=== PATIENT | male | born 1955 | race Hispanic/Latino ===

== ENCOUNTER → 2019-12-12 | Day surgery (SDC) | payer MEDICARE, OTHER ==
[2019-12-10 11:28] LABS: ANION GAP 16.8 mmol/L (8-16); BLOOD UREA NITROGEN 11 mg/dL (7-26); BUN/CREATININE RATIO 10 (6-25); CALCIUM 8.6 mg/dL (8.4-10.2); CARBON DIOXIDE 21 mmol/L (22-29); CHLORIDE 108 mmol/L (98-107); CREATININE, SERUM 1.08 mg/dL (0.72-1.25); EST GLOMERULAR FILTRATION RATE > 60 ML/MIN (60-); GLUCOSE 133 mg/dL (74-118); POTASSIUM 3.8 mmol/L (3.5-5.1); SODIUM 142 mmol/L (136-145)
[~2019-12-12] MED LIST: ATENOLOL; CEFTRIAXONE SOD 1 GM/NS 50 ML 50 ML IV ONE; DEXAMETHASONE SOD PHOS INJ 4 MG/ML VIAL ONE; DIABETES MED PO; DICYCLOMINE; DIPHEN/ATROPINE; FAMOTIDINE20 MG PO; FENTANYL CITRATE/PF 100MCG/2 ML INJ ONE; FLOMAX0.4 MG PO; IOPAMIDOL 300MG/ML 50ML INFUS..BTL IV ONE; LEVOTHYROXINE50 MCG PO; LIDOCAINE HCL 2% LOCAL INJ 5 ML SDV VIAL INJ ONE; LISINOPRIL-HCT1 EAC4 PO; MIDAZOLAM HCL 2 MG/2 ML VIAL ONE; NIFEDIPINE10 MG PO; ONDANSETRON HCL INJ 2MG/ML 2ML 2 MG/ML VIAL ONE; PROPOFOL IV EMULSION 10 MG/ML 20 ML VIAL ONE; SEVOFLURANE INHAL SOLN 250 ML PEN BTL ONE; Z.0.ATENOLOL50 MG PO; Z.0.MECLIZINE HCL12. PO; Z.0.METOPROLOL SUCC5 PO
[2019-12-12 11:00] VITALS: BP 160/89
--- NOTE | 2019-12-16 15:55 | Operative Report ---
DATE OF PROCEDURE: 12/12/2019 SURGEON: Isac Colbert MD PREOPERATIVE DIAGNOSES: 1. Microscopic hematuria. 2. Right ureteral calculus. 3. Right hydronephrosis. POSTOPERATIVE DIAGNOSES: 1. Microscopic hematuria. 2. Right ureteral calculus. 3. Right hydronephrosis. PROCEDURES: 1. Cystourethroscopy with right ureteral catheterization and right retrograde pyelogram (entirely separate procedure for microscopic hematuria). 2. Cystourethroscopy with insertion of a right indwelling stent (entirely separate procedure for right hydronephrosis). 3. Staged right-sided shock wave lithotripsy (entirely separate procedure for right ureteral calculus). 4. Supervision of fluoroscopy. 5. Interpretation of retrograde pyelography. ANESTHESIA: General. ESTIMATED BLOOD LOSS: Minimal. COMPLICATIONS: None. INDICATIONS: Mr. Villa is a very pleasant 64-year-old male with a history of 10 x 15 mm right UPJ stone with hydronephrosis. The patient and I had a long discussion of alternatives, risks, and benefits of doing nothing, shockwave lithotripsy, ureteroscopy, percutaneous surgery, or open surgery including stent placement. He voiced understanding of the options, alternatives, risks, and benefits and elected to proceed. PROCEDURE IN DETAIL: After informed consent was obtained, the patient was taken to the operative suite, place supine on the operative table, underwent general anesthesia by the Anesthesia Service, placed in dorsal lithotomy position, and sterilely prepped and draped for cystoscopy. A 21-Danish cystoscope was inserted per urethra. There was trilobar prostatic hypertrophy. Panendoscopy of the bladder revealed no tumors, no stones. Both ureteral orifices were in normal anatomic location and position and were seen to efflux urine. Right-sided retrograde pyelogram was performed revealing a densely obstructed right 10 x 15 mm proximal ureteral calculus. The lithotripsy was brought into view. A total of 3000 shocks in maximum power of 7 delivered to the stone. We could get a guidewire proximal to the stone, 6 x 28 cm ureteral stent was deployed with a coil in the upper pole and a coil in the bladder. The patient's bladder was drained. He was awakened from anesthesia and transported to the recovery room in excellent condition. Supervision of fluoroscopy and interpretation of retrograde pyelography: I was present for the entire procedure and supervised fluoroscopy. There was no radiologist present. Attention was turned towards the right ureter, which was catheterized with a 5-Danish open-ended catheter. Retrograde pyelogram was performed revealing delicate distal ureter, a 10 x 15 mm proximal ureteral calculus, proximal hydronephrosis. Postoperative views reveal a right ureteral stent in adequate position. MD NATHALIA Oliver/MODL /[id number]
== END | disposition home or self-care (01) ==
LOC: OR 07:22
PROVIDERS: ATTEND Urology
DX: N13.2 Hydronephrosis with renal and ureteral calculous obstruction (principal); N40.1 Benign prostatic hyperplasia with lower urinary tract symptoms; N13.8 Other obstructive and reflux uropathy; N39.0 Urinary tract infection, site not specified; N52.9 Male erectile dysfunction, unspecified; I10 Essential (primary) hypertension; E78.5 Hyperlipidemia, unspecified; E11.9 Type 2 diabetes mellitus without complications; E03.9 Hypothyroidism, unspecified; K21.9 Gastro-esophageal reflux disease without esophagitis; Z01.810 Encounter for preprocedural cardiovascular examination; Z01.812 Encounter for preprocedural laboratory examination; Z11.59 Encounter for screening for other viral diseases; Z68.32 Body mass index [BMI] 32.0-32.9, adult
CPT/HCPCS: 36415 ×2; 50590; 52332; 80048; 82948; 93005; C1758; C2617; J0696; J1100; J2001; J2250; J2405; J2704; J3010; Q9967; U0002

== ENCOUNTER → 2020-01-09 | Day surgery (SDC) | payer MEDICARE, OTHER ==
[2020-01-06 17:38] LABS: ANION GAP 15.1 mmol/L (8-16); BLOOD UREA NITROGEN 11 mg/dL (7-26); BUN/CREATININE RATIO 12 (6-25); CARBON DIOXIDE 24 mmol/L (22-29); CHLORIDE 106 mmol/L (98-107); CREATININE, SERUM 0.94 mg/dL (0.72-1.25); EST GLOMERULAR FILTRATION RATE > 60 ML/MIN (60-); GLUCOSE 103 mg/dL (74-118); POTASSIUM 4.1 mmol/L (3.5-5.1); SODIUM 141 mmol/L (136-145)
[~2020-01-09] MED LIST changes: -CEFTRIAXONE SOD 1 GM/NS 50 ML 50 ML IV ONE; +EPHEDRINE SULFATE INJ 50 MG/ML VIAL ONE; +GENTAMICIN 80MG/NS 100 ML 200 ML IV ONE
[2020-01-09 11:40] VITALS: BP 129/68
== END | disposition home or self-care (01) ==
LOC: OR 07:25
PROVIDERS: ATTEND Urology
DX: N20.1 Calculus of ureter (principal); Z46.6 Encounter for fitting and adjustment of urinary device; N40.1 Benign prostatic hyperplasia with lower urinary tract symptoms; N13.8 Other obstructive and reflux uropathy; N39.0 Urinary tract infection, site not specified; N52.9 Male erectile dysfunction, unspecified; N13.30 Unspecified hydronephrosis; R80.9 Proteinuria, unspecified; I10 Essential (primary) hypertension; E11.9 Type 2 diabetes mellitus without complications; E03.9 Hypothyroidism, unspecified; Z01.810 Encounter for preprocedural cardiovascular examination; Z01.812 Encounter for preprocedural laboratory examination; Z11.59 Encounter for screening for other viral diseases; Z79.84 Long term (current) use of oral hypoglycemic drugs; Z68.32 Body mass index [BMI] 32.0-32.9, adult; Z84.1 Family history of disorders of kidney and ureter
CPT/HCPCS: 36415; 52352; 74420; 80048; 88300; 93005; C1758; C1769; J1100; J1580; J2001; J2250; J2405; J2704; J3010; Q9967; U0002

== ENCOUNTER → 2020-06-07 | Outpatient (CLI) | payer MEDICARE ==
[~2020-06-07] MED LIST changes: -DEXAMETHASONE SOD PHOS INJ 4 MG/ML VIAL ONE; -EPHEDRINE SULFATE INJ 50 MG/ML VIAL ONE; -FENTANYL CITRATE/PF 100MCG/2 ML INJ ONE; -GENTAMICIN 80MG/NS 100 ML 200 ML IV ONE; -IOPAMIDOL 300MG/ML 50ML INFUS..BTL IV ONE; -LIDOCAINE HCL 2% LOCAL INJ 5 ML SDV VIAL INJ ONE; -MIDAZOLAM HCL 2 MG/2 ML VIAL ONE; -ONDANSETRON HCL INJ 2MG/ML 2ML 2 MG/ML VIAL ONE; -PROPOFOL IV EMULSION 10 MG/ML 20 ML VIAL ONE; -SEVOFLURANE INHAL SOLN 250 ML PEN BTL ONE
== END ==
LOC: CT 12:44
PROVIDERS: ATTEND Urology
DX: N23 Unspecified renal colic (principal)
CPT/HCPCS: 74176

== ENCOUNTER 2020-07-28 11:22 | Emergency (ER) | payer MEDICARE ==
[~2020-07-28] VITALS: Ht 185.4 cm; Wt 109.8 kg
[2020-07-28] MEDS ORDERED: SODIUM CHLORIDE 0.9% 1000ML 1,000 ML IV STA (11:30)
[2020-07-28] MEDS ORDERED: AZITHROMYCIN 500MG/NS 250 ML 250 ML IV SCH (11:45)
[2020-07-28 11:49] LABS: HEMATOCRIT 37.7 % (38.2-49.6); HEMOGLOBIN 13.3 g/dL (14.0-18.0); LYMPHOCYTES # (AUTO) 0.9 (1.0-3.2); LYMPHOCYTES % 16.9 % (18.0-39.1); MEAN CORPUSCULAR HEMOGLOBIN 29.8 pg (28-32); MEAN CORPUSCULAR HGB CONC 35.3 g/dL (31-35); MEAN CORPUSCULAR VOLUME 84.3 fL (81-99); MONOCYTES # (AUTO) 0.3 (0.2-0.8); MONOCYTES % 5.6 % (4.4-11.3); NEUTROPHILS # (AUTO) 4.1 (2.1-6.9); NEUTROPHILS % 77.1 % (38.7-80.0); PLATELET COUNT 158 x10e3/uL (140-360); RED BLOOD COUNT 4.47 x10e6/uL (4.3-5.7); RED CELL DISTRIBUTION WIDTH 13.5 % (11.7-14.4)
[2020-07-28 12:13] LABS: INR 0.91; PARTIAL THROMBOPLASTIN TIME 32.8 seconds (23.8-35.5); PROTHROMBIN TIME 12.8 seconds (11.9-14.5)
[2020-07-28 12:22] LABS: ALANINE AMINOTRANSFERASE 21 IU/L (0-55); ALBUMIN 2.7 g/dL (3.5-5.0); ALBUMIN/GLOBULIN RATIO 0.7 (0.8-2.0); ALKALINE PHOSPHATASE 48 IU/L (40-150); ANION GAP 14.9 mmol/L (8-16); BLOOD UREA NITROGEN 9 mg/dL (7-26); BUN/CREATININE RATIO 10 (6-25); CARBON DIOXIDE 17 mmol/L (22-29); CHLORIDE 106 mmol/L (98-107); CREATINE KINASE 289 IU/L (30-200); CREATININE, SERUM 0.92 mg/dL (0.72-1.25); EST GLOMERULAR FILTRATION RATE > 60 ML/MIN (60-); GLUCOSE 164 mg/dL (74-118); MAGNESIUM 1.4 MG/DL (1.3-2.1); POTASSIUM 3.9 mmol/L (3.5-5.1); SODIUM 134 mmol/L (136-145)
[2020-07-28] MEDS ORDERED: CEFTRIAXONE SOD 2 GM 100 ML IV SCH (12:30)
[2020-07-28] MEDS ORDERED: ACETAMINOPHEN 325 MG TAB PO ONE (13:00)
[2020-07-28 13:01] LABS: CALCIUM 6.9 mg/dL (8.4-10.2)
[2020-07-28 13:04] LABS: CLARITY,URINE CLEAR (CLEAR); COLOR,URINE YELLOW (YELLOW)
[2020-07-28 13:05] LABS: KETONES,URINE 1+ (NEGATIVE); LEUKOCYTE ESTERASE ,URINE NEGATIVE (NEGATIVE); NITRITE,URINE NEGATIVE (NEGATIVE); PROTEIN,URINE DIPSTICK >=300 (NEGATIVE); URINE UROBILINOGEN 0.2 mg/dL (0.2 - 1)
[2020-07-28] MEDS ORDERED: DEXAMETHASONE SOD PHOS 10 MG/1 ML VIAL IV SCH (13:30)
[2020-07-28 14:18] LABS: BACTERIA,URINE MODERATE /HPF; RBC,URINE 0-5 /HPF (0-5)
== END 2020-07-28 17:45 | disposition other institution (70) ==
LOC: ER 12:00
DX: U07.1 COVID-19 (principal); R06.02 Shortness of breath; J18.9 Pneumonia, unspecified organism; R05 Cough; I10 Essential (primary) hypertension; E11.65 Type 2 diabetes mellitus with hyperglycemia; E78.5 Hyperlipidemia, unspecified; R94.31 Abnormal electrocardiogram [ECG] [EKG]; Z87.442 Personal history of urinary calculi
CPT/HCPCS: 36415; 71045; 80053; 81001; 82550; 82553; 83735; 83880; 84484; 85025; 85610; 85730; 87040; 87086; 93005; 99285; J0456; J0696; J1100; J7030; U0002; 87186